=== PATIENT | female | born 1970 | race Caucasian/White ===

== ENCOUNTER 2018-12-17 13:41 | Inpatient (IN) | payer MEDICAID ==
[~2018-12-17] VITALS: Ht 152.4 cm; Wt 60.0 kg
[2018-12-17] MEDS ORDERED: ASPIRIN 325 MG TAB PO STA (14:10)
[2018-12-17] MEDS ORDERED: SOD CHLORIDE 0.9% 1,000 ML IV STA (14:10)
[2018-12-17] MEDS ORDERED: NITROGLYCERIN 2% 1 GM OINT PKT TD STA (14:10)
[2018-12-17] MEDS ORDERED: NICARDipine HCL 30 MG CAPSULE PO ONE (14:30)
[2018-12-17] MEDS ORDERED: AMLO5TAB4 PO (14:43)
[2018-12-17] MEDS ORDERED: LEVO75TA65 PO (14:43)
[2018-12-17] MEDS ORDERED: HYDR25TA6 PO (14:44)
[2018-12-17] MEDS ORDERED: SOD CHLORIDE 0.9% 100 ML ONE (16:05)
[2018-12-17] MEDS ORDERED: IOHEXOL 100 ML ONE (16:05)
--- NOTE | 2018-12-17 16:07 | ERD ---
ER Documentation Chief Complaint Chief Complaint CP ONSET 20 MIN AGO, SOB HPI This is a 48-year-old female who was resting at home and she said that she suddenly had a substernal chest pain described as a sharp/pressure then became s hort of breath. She then stated she felt like she became very afraid that the symptoms were serious and that she might . She then became panicky with hyperventilating and trembling upper extremities. Patient has a history of hypertension and takes medication. She says she is not under any excessive stress in life and has never had a panic attack before. She says that the symptoms began his pain and breathing difficulty then progressed into fear that something was going to happen promoting the rest of the symptoms ROS All systems reviewed and are negative except as per history of present illness. Medications Home Meds Reported Medications Hydrochlorothiazide* (Hydrochlorothiazide*) 25 Mg Tab, 25 MG PO DAILY, #30 TAB 12/17/18 Amlodipine Besylate* (Norvasc*) 5 Mg Tablet, 5 MG PO DAILY, TAB 12/17/18 Levothyroxine Sodium* (Levoxyl*) 75 Mcg Tablet, 75 MCG PO BEFORE BREAKFAST, #30 TAB 12/17/18 Allergies Allergies: Coded Allergies: Penicillins (Verified Allergy, Unknown, 12/17/18) PMhx/Soc History of Surgery: No Hx Cardiac Disorders: Yes (HTN) Hx Miscellaneous Medical Probl: Yes (THYROID) Hx Substance Use: No Hx Tobacco Use: No Smoking Status: Never smoker FmHx Family History: No coronary disease Physical Exam Vitals Vital Signs Date Temp Pulse Resp B/P (MAP) Pulse Ox O2 O2 Flow FiO2 Time Delivery Rate 12/17/18 98.2 118 17 115/65 100 Room Air 18:08 (82) 12/17/18 118 110/59 17:34 (76) 12/17/18 158 137/91 17:25 (106) 12/17/18 81 17 172/107 100 Room Air 16:33 (128) 12/17/18 88 16 144/104 100 Room Air 14:53 (117) 12/17/18 98.1 113 18 187/98 99 13:45 (127) Physical Exam Const: Well-developed, well-nourished Head: Atraumatic, normocephalic Eyes: Normal Conjunctiva, PERRLA, EOMI, normal sclera, no nystagmus ENT: Normal External Ears, Nose and Mouth, moist mucus membranes. Neck: Full range of motion. No meningismus, no lymphadenopathy. Resp: Clear to auscultation bilaterally, no wheezing, rhonchi, rales Cardio: Regular rate and rhythm, no murmurs, S1 S2 present Abd: Soft, non tender x 4, non distended. Normal bowel sounds, no guarding or rebound, no pulsitile abdominal masses or bruits Skin: No petechiae or rashes, no ecchymosis , no maculopapular rash Back: No midline or flank tenderness Ext: No cyanosis, or edema, FROM x 4, normal inspection, neurovascularly intact x 4 Neur: Awake and alert, STR 5/5 x 4, sensation intact x 4, no focal findings, cerebellum intact Psych: Normal Mood and Affect Result Diagram: 12/17/18 1445 12/17/18 1445 Results 24 hrs Laboratory Tests Test 12/17/18 14:45 White Blood Count 8.5 10^3/ul Red Blood Count 5.17 10^6/ul Hemoglobin 14.6 g/dl Hematocrit 43.3 % Mean Corpuscular Volume 83.8 fl Mean Corpuscular Hemoglobin 28.2 pg Mean Corpuscular Hemoglobin Concent 33.7 g/dl Red Cell Distribution Width 13.6 % Platelet Count 305 10^3/UL Mean Platelet Volume 10.5 fl Immature Granulocytes % 0.500 % Neutrophils % 61.1 % Lymphocytes % 27.0 % Monocytes % 7.4 % Eosinophils % 3.4 % Basophils % 0.6 % Nucleated Red Blood Cells % 0.0 /100WBC Immature Granulocytes # 0.040 10^3/ul Neutrophils # 5.2 10^3/ul Lymphocytes # 2.3 10^3/ul Monocytes # 0.6 10^3/ul Eosinophils # 0.3 10^3/ul Basophils # 0.1 10^3/ul Nucleated Red Blood Cells # 0.0 10^3/ul Prothrombin Time 12.6 Sec Prothrombin Time Ratio 1.0 INR International Normalized Ratio 0.93 Activated Partial Thromboplast Time 29.4 Sec D-Dimer 321.26 ng/ml D-Dimer Comment Sodium Level 144 mmol/L Potassium Level 3.9 mmol/L Chloride Level 108 mmol/L Carbon Dioxide Level 25 mmol/L Anion Gap 11 Blood Urea Nitrogen 20 mg/dl Creatinine 0.47 mg/dl Est Glomerular Filtrat Rate mL/min > 60 mL/min Glucose Level 102 mg/dl Calcium Level 9.3 mg/dl Troponin I < 0.012 ng/ml Serum HCG, Qualitative NEGATIVE Current Medications Medications Dose Sig/Kayley Start Time Status Last (Trade) Ordered Route PRN Stop Time Admin Dose Reason Admin Sodium 1,000 ml @ Q1H STAT 12/17/18 DC 12/17/18 Chloride 1,000 mls/hr IV 14:10 12/17/18 15:04 15:09 Aspirin 325 mg ONCE STAT 12/17/18 DC 12/17/18 (Aspirin) PO 14:10 12/17/18 15:04 14:12 1 inch ONCE STAT 12/17/18 DC 12/17/18 Nitroglycerin TD 14:10 12/17/18 15:05 14:12 (Nitroglyceri n 2% Oint) Nicardipine 30 mg ONCE ONCE 12/17/18 DC 12/17/18 HCl PO 14:30 12/17/18 16:39 (Cardene) 14:31 IV Flush 10 ml STK-MED 12/17/18 DC 12/17/18 (NS 10 ml) ONCE .ROUTE 16:05 12/17/18 16:05 16:06 Sodium 100 ml @ ud STK-MED 12/17/18 DC 12/17/18 Chloride ONCE .ROUTE 16:12/17/18 16:05 16:06 Iohexol 100 ml @ ud STK-MED 12/17/18 DC 12/17/18 ONCE .ROUTE 16:05 12/17/18 16:05 16:06 Diltiazem 25 mg STK-MED 12/17/18 DC HCl ONCE .ROUTE 17:24 12/17/18 (Cardizem Iv) 17:25 Diltiazem 20 mg ONCE ONCE 12/17/18 DC 12/17/18 HCl IV 17:30 12/17/18 17:35 (Cardizem Iv) 17:31 Procedures/MDM MR #: [id number] DOS: 12/17/18 1410 Ordering MD: ANKUR GRAMAJO DO Location: E/R Room/Bed: PROCEDURE: CTA Chest. CLINICAL INDICATION: Chest pain TECHNIQUE: The study was performed utilizing multidetector CT scanner. Direct spiral axial sections were obtained from the thoracic inlet to the upper abdomen with the use of 100 cc of Isovue 370 intravenous contrast material and reformatted. The images were reviewed on a PACS workstation. 3-D volume rendered images were performed. Sagittal and coronal reformatted images were obtained from the axial source images. DICOM images are available. DLP 252.88 mGy.cm mGycm CTDIvol 20.93 mGy mGy One or more of the following post reduction techniques were used: - Automated exposure control. - Adjustment of the mA and/or Kv according to patient's size. - Use of iterative reconstruction technique COMPARISON: No prior studies are available for comparison. FINDINGS: The aorta is without aneurysmal dilatation or dissection. The visualized pulmonary arteries are without evidence of filling defect to suggest pulmonary embolus. The lungs are clear. No abnormal soft tissue masses or nodular densities are visualized. There is no pleural effusion. There is no pericardial effusion. There are no pathologic enlarged mediastinal lymph nodes. The osseous structures are unremarkable. Scans through the upper abdomen are unremarkable. RPTAT: AA IMPRESSION: No CT evidence for pulmonary embolus. .Sandeep Davies MD, MD Date Time Electronically viewed and signed by .Sandeep Davies MD, MD on 12/17/2018 16:46 .S/ CC: ANKUR GRAMAJO DO [id number] EKG: Rate/Rhythm: Sinus rhythm heart rate 85 QRS, ST, QT: NORMAL OR, QRS, QT] Impression: NORMAL EKG Patient suddenly went into a tachycardia with a heart rate of 171. On the monitor looked like SVT versus A. fib. Of the time he got an EKG done her heart rate was in the low 140s and was sinus tachycardia. He did give 20 mg of Cardizem to slow it even further. Will admit for chest pain work-up and tach arrhythmia. Cardiac Admit MDM: Patient's symptoms are concerning for cardiac cause will require inpatient workup and continuous monitoring. Further w/u for ischemia, arrhythmia, PE or dissection will be deferred to the inpatient team. Departure Diagnosis: Primary Impression: Chest pain Chest pain type: unspecified Qualified Codes: R07.9 - Chest pain, unspecified Additional Impression: Tachycardia Condition: Stable ANKUR GRAMAJO DO December 17, 2018 16:07
[2018-12-17] MEDS ORDERED: DILTIAZEM 25 MG INJ ONE (17:24)
[2018-12-17] MEDS ORDERED: DILTIAZEM 25 MG INJ IV ONE (17:30)
[2018-12-17] MEDS ORDERED: ONDANSETRON 4 MG INJ IV PRN (19:00)
[2018-12-17] MEDS ORDERED: ACETAMINOPHEN 325 MG TAB PO PRN (19:00)
[2018-12-17] MEDS ORDERED: NACL 0.9% 3 ML SYG IV SCH (19:00)
--- NOTE | 2018-12-17 19:15 | HP ---
Date/Time of Note Date/Time of Note DATE: 12/17/18 TIME: 18:54 Assessment/Plan VTE Prophylaxis SCD applied (from Nsg): Yes Pharmacological prophylaxis: NA/contraindicated Pharm contraindication: low risk/ambulating Lines/Catheters IV Catheter Type (from Nrsg): Saline Lock Assessment/Plan Assessment/Plan 48 yo woman history of hypothyroid and hypertension presents with palpitations in sinus tachycardia. #Palpitations #Tachycardia - On review of ED tele, appears to be sinus tachy gradually increasing to max rate 170s. - No evidence of AVNRT or other reentrant tachycardia. - Low suspicion for ACS. EKG non-ischemic, trop neg x1. Will get 2 more trops. - Patient does not appear to be septic. No sign/symptoms of infection, even viral. - I suspect hyperthyroidism. Will check TSH/FT4. - Will start propranolol. - If thyroid function tests normal, would next consider pheochromocytoma. - She also has a diastolic murmur but this may just be related to hyperdynamic state. If still present under beta blockade tomorrow, will consider echo. #Hypothyroid - Hold home synthroid until TSH/FT4 comes back. #HTN - Continue home anti-hypertensives. DVT: SCDs GI: None Result Diagram: 12/17/18 1445 12/17/18 1445 HPI/ROS Admit Date/Time Admit Date/Time 17 Dec 2018 Hx of Present Illness Ms. Jiménez is a 48 yo woman who presents with chest discomfort and palpitaitons. She was in her usual state of health until about 13:30 this afternoon, when she suddenly developed heart palpitations. She grew very anxious and began hyperventilating. There was a component of squeezing chest pressure as well. She brought herself into the ED. She did have similar heart palpitations about a week ago, lasted about a minute and self-resolved. She believes this has happened a few times in the past also. She has never been hospitalized and does not follow a back hanger. For the past few days she has noticed she gets cold very easily. She had mild dry cough yesterday. Otherwise has felt in good health. In the ED she was hypertensive to 187/98. Initial heart rate was 113 but then increased to 170s. On review of tele, appears to be sinus with gradual increase of rate and fusing of P and T waves. She was given IV diltiazem which was effective in controlling the rate. ROS Denies recent fevers, weight loss, fatigue, headache, vision changes, sore throat, dysphagia, productive cough, nausea, vomiting, abdominal pain, diarrhea, constipation, dysuria, hematuria, leg swelling. PMH/Family/Social Past Medical History Hypertension Hyperthyroid, on synthroid for about 8 years, no recent change to dose. Medications Current Medications Ondansetron HCl (Zofran Inj) 4 mg ER BRIDGE PRN IV NAUSEA/VOMITING; Start 12/17/18 at 19:00; Stop 12/18/18 at 18:59 Acetaminophen (Tylenol Tab) 650 mg ER BRIDGE PRN PO .MILD PAIN 1-3 OR TEMP; Start 12/17/18 at 19:00; Stop 12/18/18 at 18:59 IV Flush (NS 3 ml) 3 ml PER PROTOCOL IV ; Start 12/17/18 at 19:00 Acetaminophen (Tylenol Tab) 650 mg Q6H PRN PO .PAIN 1-3 OR TEMP; Start 12/17/18 at 19:00 Coded Allergies: Penicillins (Verified Allergy, Unknown, 12/17/18) Past Surgical History R breast biopsy (negative for malignancy) Social History Alcohol Use: occasionally Smoking Status: Never smoker Drug Use: none Exam/Review of Systems Vital Signs Vitals Vital Signs Date Temp Pulse Resp B/P (MAP) Pulse Ox O2 O2 Flow FiO2 Time Delivery Rate 12/17/18 98.2 118 17 115/65 100 Room Air 18:08 (82) Exam Exam Gen: Uncomfortable appearing woman, anxious appearing Skin: Very warm, slightly diaphoretic, flushed. 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 Moist mucous membranes, clear oropharynx Neck: Visible and palpable pulsations over lower mid neck. Thyroid is not grossly enlarged. No JVD. Chest: Very hyperdynamic precordium. Card: Tachy, 1/6 diastolic murmur loudest over LLSB. Pulm: Clear to auscultation bilaterally Abd: Soft, nontender, nondistended. No hepatosplenomegaly. Ext: No cyanosis, good peripheral pulses. JOSY NEGRO MD December 17, 2018 19:04
[2018-12-17 21:00] VITALS: PULSE 91
[2018-12-17] MEDS: PROPRANOLOL 40 MG TAB PO SCH (21:00)
[2018-12-17 21:10] VITALS: BP 123/78; PULSE 87; RESP 18; Ht 152.4 cm; Wt 60.0 kg
[2018-12-17] MEDS: ACETAMINOPHEN 325 MG TAB PO PRN (21:24)
[2018-12-18] VITALS (12 sets, daily range): BP systolic 114–142; BP diastolic 63–93; PULSE 59–86; RESP 17–18
[2018-12-18] MEDS: PROPRANOLOL 40 MG TAB PO SCH ×3 (09:08→20:31)
[2018-12-18] MEDS: ACETAMINOPHEN 325 MG TAB PO PRN (14:44)
--- NOTE | 2018-12-18 15:04 | PN ---
Date/Time of Note Date/Time of Note DATE: 12/18/18 TIME: 15:00 Assessment/Plan VTE Prophylaxis Risk score (from Nsg)>0 risk: 1 SCD applied (from Nsg): Yes Pharmacological prophylaxis: NA/contraindicated Pharm contraindication: low risk/ambulating Lines/Catheters IV [facility] (from [facility] Peripheral IV Assessment/Plan Hospital Course SUBJECTIVE: No acute distress. Stable heart rate. No palpitation. OBJECTIVE: Vital signs-see below PHYSICAL EXAM: Constitutional: Adequately built,not in acute distress. HEENT: Head atraumatic and normocephalic. Eyes: Extraocular muscles intact. Anicteric sclerae. Pupils equal bilaterally, reactive to light. NECK: Supple without lymph node. CHEST: Clear and good breath sounds equally. No wheezing. No rhonchi. HEART: S1, S2. Regular rate and rhythm. ABDOMEN: Soft/non tender with no rebound tenderness. Bowel sounds were present. EXTREMITIES: No cyanosis, clubbing or edema. NEUROLOGIC: Alert and oriented x3. No focal deficit. No sensory deficit. PSYCHOSOCIAL: No signs of depression. INTEGUMENTARY: No open wounds. ASSESSMENT AND PLAN:48 yo woman history of hypothyroid and hypertension presents with palpitations in sinus tachycardia. Palpitations/Tachycardia : Resolved - No evidence of AVNRT or other reentrant tachycardia. - TSH/FT4 stable - on propranolol. - consider other possible endocrine/cardiology etiology to explain tachycardia. - Endocrinology/cardiology consult. Hypothyroid -Synthroid currently on hold secondary to palpitation. Thyroid function studies normal, defer endocrinology for dosage. HTN - Continue home anti-hypertensives. DVT: SCDs GI: None Disposition: Overall, patient responded with propranolol. Her heart rate is stable although slight borderline bradycardia noted. At this time, we recommend cardiology and endocrine work-up for etiology of palpitation which brought patient in the hospital. Continue telemetry monitoring Patient was seen in collaboration with Dr. Ocampo Result Diagram: 12/18/1847 12/18/1847 Results 24hrs Laboratory Tests Test 12/17/18 21:13 12/18/18 02:28 12/18/18 05:47 Troponin I < 0.012 < 0.012 White Blood Count 10.9 #H Red Blood Count 4.77 Hemoglobin 13.3 Hematocrit 39.7 Mean Corpuscular Volume 83.2 Mean Corpuscular Hemoglobin 27.9 L Mean Corpuscular Hemoglobin Concent 33.5 Red Cell Distribution Width 13.8 Platelet Count 299 Mean Platelet Volume 10.7 H Immature Granulocytes % 0.500 H Neutrophils % 65.8 Lymphocytes % 24.1 Monocytes % 7.4 Eosinophils % 1.8 Basophils % 0.4 Nucleated Red Blood Cells % 0.0 Immature Granulocytes # 0.050 H Neutrophils # 7.2 Lymphocytes # 2.6 Monocytes # 0.8 Eosinophils # 0.2 Basophils # 0.0 Nucleated Red Blood Cells # 0.0 Sodium Level 141 Potassium Level 3.6 Chloride Level 107 Carbon Dioxide Level 25 Anion Gap 9 Blood Urea Nitrogen 19 Creatinine 0.46 Est Glomerular Filtrat Rate mL/min > 60 Glucose Level 99 Hemoglobin A1c 5.4 Calcium Level 9.1 Phosphorus Level 3.8 Magnesium Level 2.1 Total Bilirubin 0.5 Direct Bilirubin 0.00 Indirect Bilirubin 0.5 Aspartate Amino Transf (AST/SGOT) 37 Alanine Aminotransferase (ALT/SGPT) 51 Alkaline Phosphatase 68 Total Protein 7.1 Albumin 4.2 Globulin 2.90 Albumin/Globulin Ratio 1.44 Exam/Review of Systems Exam Vitals Vital Signs Date Temp Pulse Resp B/P (MAP) Pulse Ox O2 O2 Flow FiO2 Time Delivery Rate 12/18/18 98.2 59 18 142/69 96 12:07 (93) 12/17/18 Room Air 21:10 Results Results 24hrs Laboratory Tests Test 12/17/18 21:13 12/18/18 02:28 12/18/18 05:47 Troponin I < 0.012 < 0.012 White Blood Count 10.9 #H Red Blood Count 4.77 Hemoglobin 13.3 Hematocrit 39.7 Mean Corpuscular Volume 83.2 Mean Corpuscular Hemoglobin 27.9 L Mean Corpuscular Hemoglobin Concent 33.5 Red Cell Distribution Width 13.8 Platelet Count 299 Mean Platelet Volume 10.7 H Immature Granulocytes % 0.500 H Neutrophils % 65.8 Lymphocytes % 24.1 Monocytes % 7.4 Eosinophils % 1.8 Basophils % 0.4 Nucleated Red Blood Cells % 0.0 Immature Granulocytes # 0.050 H Neutrophils # 7.2 Lymphocytes # 2.6 Monocytes # 0.8 Eosinophils # 0.2 Basophils # 0.0 Nucleated Red Blood Cells # 0.0 Sodium Level 141 Potassium Level 3.6 Chloride Level 107 Carbon Dioxide Level 25 Anion Gap 9 Blood Urea Nitrogen 19 Creatinine 0.46 Est Glomerular Filtrat Rate mL/min > 60 Glucose Level 99 Hemoglobin A1c 5.4 Calcium Level 9.1 Phosphorus Level 3.8 Magnesium Level 2.1 Total Bilirubin 0.5 Direct Bilirubin 0.00 Indirect Bilirubin 0.5 Aspartate Amino Transf (AST/SGOT) 37 Alanine Aminotransferase (ALT/SGPT) 51 Alkaline Phosphatase 68 Total Protein 7.1 Albumin 4.2 Globulin 2.90 Albumin/Globulin Ratio 1.44 Medications Medication Current Medications Ondansetron HCl (Zofran Inj) 4 mg ER BRIDGE PRN IV NAUSEA/VOMITING; Start 12/17/18 at 19:00; Stop 12/18/18 at 18:59 Acetaminophen (Tylenol Tab) 650 mg ER BRIDGE PRN PO .MILD PAIN 1-3 OR TEMP Last administered on 12/18/18at 14:44; Admin Dose 650 MG; Start 12/17/18 at 19:00; Stop 12/18/18 at 18:59 IV Flush (NS 3 ml) 3 ml PER PROTOCOL IV ; Start 12/17/18 at 19:00 Acetaminophen (Tylenol Tab) 650 mg Q6H PRN PO .PAIN 1-3 OR TEMP; Start 12/17/18 at 19:00 Propranolol HCl (Inderal) 40 mg TID PO Last administered on 12/18/18at 12:47; Admin Dose 40 MG; Start 12/17/18 at 21:00 PAMELLA CELESTE NP December 18, 2018 15:03
--- NOTE | 2018-12-18 15:12 | RADRPT ---
Echocardiogram Report Patient Name: LEO KIMBALLPatient ID: [id number] : 1970 (48y 5m)Study Date: 12/18/2018 2:22:28 PM Gender: FAccession #: [id number] Tech: Gopi Pompa [facility] Location: [facility] Ref.Physician: PAMELLA CELESTE Height(Cm): BSA: Weight(Kg): Quality: AdequateAccount #: Procedures: Echocardiographic Report: Transthoracic echocardiogram with complete 2D, M-Mode, and doppler examination. Indications: Palpitations. Measurements: 2D/M Mode Doppler Measurement Value Normal Range Measurement Value Normal Range LVIDd 2D 0.8 [ 3.8 - 5.2 ] cm AV Peak Balbir 134.0 [ 100.0 - 170.0 ] cm/sec LVIDs 2D 2.1 [ 2.2 - 3.5 ] cm AV Peak PG 7.0 [ 2.0 - 9.0 ] mmHg LVPWd 2D 0.8 [ 0.6 - 0.9 ] cm LVOT Peak Balbir 99.7 [ 70.0 - 110.0 ] cm/sec IVSd 2D 1.0 [ 0.6 - 0.9 ] cm LVOT Peak PG 4.0 [ 2.0 - 6.0 ] mmHg AoR Diam 2D 2.6 [ 2.3 - 3.1 ] cm MV E Peak Balbir 75.5 [ 60.0 - 130.0 ] cm/sec LA Dimen 2D 3.1 [ 2.7 - 3.8 ] cm MV E Peak PG 2.0 mmHg MV A Peak Balbir 105.0 [ 100.0 - 120.0 ] cm/sec MV A Peak PG 4.0 mmHg MV E/A 0.7 [ 0.8 - 1.5 ] ratio MV Decel Time 250 [ 104 - 258 ] msec E/E' 8.2 TR Peak Balbir 205.0 [ 100.0 - 280.0 ] cm/sec TR Peak PG 17.0 mmHg RVSP 27.0 [ 10.0 - 36.0 ] mmHg RA Pressure 10.0 mmHg Findings: Left Ventricle: Normal left ventricular systolic function. Normal left ventricular cavity size. Normal left ventricular wall thickness. Ejection fraction is visually estimated at 60 %. Tissue Doppler/Mitral Doppler indices are consistent with impaired relaxation (Stage I diastolic dysfunction). Right Ventricle: Normal right ventricular size. Normal right ventricular systolic function. Left Atrium: The left atrium is normal in size. Right Atrium: The right atrium is normal in size. Mitral Valve: Normal appearance and function of the mitral valve with trace physiologic regurgitation. Aortic Valve: Normal appearance of the aortic valve. No significant aortic stenosis or insufficiency. Tricuspid Valve: Normal appearance of the tricuspid valve. Estimated peak PA systolic pressure 27 mmHg. There is trace tricuspid regurgitation. Pulmonic Valve: Normal pulmonic valve appearance. Pericardium: Normal pericardium with no significant pericardial effusion. Aorta: Normal aortic root. IVC: Normal size and normal respiratory collapse consistent with normal right atrial pressure. Conclusions: Normal left ventricular systolic function. Normal left ventricular cavity size. Normal left ventricular wall thickness. Ejection fraction is visually estimated at 60 %. Tissue Doppler/Mitral Doppler indices are consistent with impaired relaxation (Stage I diastolic dysfunction). The left atrium is normal in size. Normal appearance and function of the mitral valve with trace physiologic regurgitation. Normal appearance of the aortic valve. No significant aortic stenosis or insufficiency. Normal appearance of the tricuspid valve. Estimated peak PA systolic pressure 27 mmHg. There is trace tricuspid regurgitation. Electronically Signed By: Tay Cuellar 2018-12-18 15:12:27 PDT
--- NOTE | 2018-12-18 17:56 | CONS ---
Assessment/Plan Assessment/Plan Problems: (1) Tachycardia Status: Acute Comment: It. This is not due to thyroid issues. A question was raised rather astutely by the admitting hospitalist, Dr. Loera, of the possibility of pheochromocytoma. The CT scan of the chest to rule out pulmonary embolism does not mention the adrenal gland specifically but says that the upper abdominal organs are without abnormality. Regardless this is an appropriate consideration. Patients with pheochromocytomas are always dehydrated and as such orthostatic blood pressure and pulse should help in differentiating this. I will go ahead and order the screening laboratories as well but if the patient is orthostatic then she should be placed immediately on alpha blockade therapy using a long-acting alpha-teddy such as either terazosin or doxazosin. (2) Hypertension Status: Chronic Comment: Probable essential hypertension, further delineation in progress Qualifiers: Qualified Codes: I10 - Essential (primary) hypertension (3) Grade I diastolic dysfunction Status: Chronic Comment: He does have better blood pressure control (4) Hypothyroidism Status: Chronic Comment: Stable on thyroid hormone replacement therapy Qualifiers: Qualified Codes: E03.9 - Hypothyroidism, unspecified Consultation Date/Type/Reason Admit Date/Time 17 Dec 2018 Date of Consultation: December 18, 2018 Type of Consult Endocrine Reason for Consultation Severe hypertension episodic with palpitations; hypothyroidism; rule out secondary cause of elevated blood pressure Requesting Provider: PAMELLA CELESTE NP Date/Time of Note DATE: 12/18/18 TIME: 17:49 Hx of Present Illness This is the first [facility] admission for this 48-year-old r ight-handed [employer] woman. She has a 10-year history of hypertension which had onset during her last and never resolved. She also has an 8-year history of hypothyroidism maintained on stable dose levothyroxine. Last 6 months she reports that she has had some more problems controlling her blood pressure and has had to have her medications escalated. She denies any history of ever having had spontaneous hypokalemia. She has had episodic headaches which have been more in the last 6 months and is also had some abdominal symptoms that have come and gone. He has had palpitations. On presentation to this facility she has had episodic hypertension and tachydysrhythmia that was a sinus tachycardia per the chart. Not appear to have been a reentrant tachycardia Constitutional: no complaints (Fevers chills or sweats) Eyes: no complaints ENT: no complaints Respiratory: no complaints Cardiovascular: chest pain (Intermittent chest pains), palpitations Gastrointestinal: other (Remittent epigastric discomfort) Genitourinary: no complaints Musculoskeletal: no complaints Skin: no complaints Neurologic: no complaints Past Medical History Medical History: hypertension, hypothyroid Home Meds Reported Medications Hydrochlorothiazide* (Hydrochlorothiazide*) 25 Mg Tab, 25 MG PO DAILY, #30 TAB 12/17/18 Amlodipine Besylate* (Norvasc*) 5 Mg Tablet, 5 MG PO DAILY, TAB 12/17/18 Levothyroxine Sodium* (Levoxyl*) 75 Mcg Tablet, 75 MCG PO BEFORE BREAKFAST, #30 TAB 12/17/18 Medications Current Medications Ondansetron HCl (Zofran Inj) 4 mg ER BRIDGE PRN IV NAUSEA/VOMITING; Start 12/17/18 at 19:00; Stop 12/18/18 at 18:59 Acetaminophen (Tylenol Tab) 650 mg ER BRIDGE PRN PO .MILD PAIN 1-3 OR TEMP Last administered on 12/18/18at 14:44; Admin Dose 650 MG; Start 12/17/18 at 19:00; Stop 12/18/18 at 18:59 IV Flush (NS 3 ml) 3 ml PER PROTOCOL IV ; Start 12/17/18 at 19:00 Acetaminophen (Tylenol Tab) 650 mg Q6H PRN PO .PAIN 1-3 OR TEMP; Start 12/17/18 at 19:00 Propranolol HCl (Inderal) 40 mg TID PO Last administered on 12/18/18at 12:47; Admin Dose 40 MG; Start 12/17/18 at 21:00 Allergies: Coded Allergies: Penicillins (Verified Allergy, Unknown, 12/17/18) Past Surgical History Past Surgical Hx: noncontributory Family History Significant Family History: no pertinent family hx Social History Born [employer] raised. lives with her family Alcohol Use: occasionally Smoking Status: Never smoker Drug Use: none Exam/Review of Systems Exam Vitals Vital Signs Date Temp Pulse Resp B/P (MAP) Pulse Ox O2 O2 Flow FiO2 Time Delivery Rate 12/18/18 68 16:00 12/18/18 97.3 17 137/65 97 15:33 (89) 5/5/19 Room Air 21:10 Exam To get this time where the orthostatic vital signs Constitutional: alert, oriented Eyes: nl conjunctiva, EOMI, nl lids, nl sclera Neck: supple, non-tender Respiratory: clear to auscultation, normal air movement Cardiovascular: regular rate and rhythm, nl pulses Gastrointestinal: soft, nl liver, spleen, non-tender Results Result Diagram: 12/18/18 0547 12/18/18 0547 Results 24hrs Laboratory Tests Test 12/17/18 21:13 12/18/18 02:28 12/18/18 05:47 Troponin I < 0.012 < 0.012 White Blood Count 10.9 #H Red Blood Count 4.77 Hemoglobin 13.3 Hematocrit 39.7 Mean Corpuscular Volume 83.2 Mean Corpuscular Hemoglobin 27.9 L Mean Corpuscular Hemoglobin Concent 33.5 Red Cell Distribution Width 13.8 Platelet Count 299 Mean Platelet Volume 10.7 H Immature Granulocytes % 0.500 H Neutrophils % 65.8 Lymphocytes % 24.1 Monocytes % 7.4 Eosinophils % 1.8 Basophils % 0.4 Nucleated Red Blood Cells % 0.0 Immature Granulocytes # 0.050 H Neutrophils # 7.2 Lymphocytes # 2.6 Monocytes # 0.8 Eosinophils # 0.2 Basophils # 0.0 Nucleated Red Blood Cells # 0.0 Sodium Level 141 Potassium Level 3.6 Chloride Level 107 Carbon Dioxide Level 25 Anion Gap 9 Blood Urea Nitrogen 19 Creatinine 0.46 Est Glomerular Filtrat Rate mL/min > 60 Glucose Level 99 Hemoglobin A1c 5.4 Calcium Level 9.1 Phosphorus Level 3.8 Magnesium Level 2.1 Total Bilirubin 0.5 Direct Bilirubin 0.00 Indirect Bilirubin 0.5 Aspartate Amino Transf (AST/SGOT) 37 Alanine Aminotransferase (ALT/SGPT) 51 Alkaline Phosphatase 68 Total Protein 7.1 Albumin 4.2 Globulin 2.90 Albumin/Globulin Ratio 1.44 Medications Medication Current Medications Ondansetron HCl (Zofran Inj) 4 mg ER BRIDGE PRN IV NAUSEA/VOMITING; Start 12/17/18 at 19:00; Stop 12/18/18 at 18:59 Acetaminophen (Tylenol Tab) 650 mg ER BRIDGE PRN PO .MILD PAIN 1-3 OR TEMP Last administered on 12/18/18at 14:44; Admin Dose 650 MG; Start 12/17/18 at 19:00; Stop 12/18/18 at 18:59 IV Flush (NS 3 ml) 3 ml PER PROTOCOL IV ; Start 12/17/18 at 19:00 Acetaminophen (Tylenol Tab) 650 mg Q6H PRN PO .PAIN 1-3 OR TEMP; Start 12/17/18 at 19:00 Propranolol HCl (Inderal) 40 mg TID PO Last administered on 12/18/18at 12:47; Admin Dose 40 MG; Start 12/17/18 at 21:00 LIV ANG MD December 18, 2018 17:56
--- NOTE | 2018-12-18 18:24 | CONS ---
Assessment/Plan Assessment/Plan Hospital Course (Demo Recall) Chest pain atypical rule out ACS Tachycardia: Appears to be sinus tachycardia. Question anxiety related Hypertension Hypothyroidism Recommendation: Continue with the beta-teddy Thyroid management as per internal medicine and endocrine consultants We will schedule the patient for Lexiscan stress test tomorrow Thank you for his referral. We will continue to follow along with you FELY TRAYLOR MD [facility] Consultation Date/Type/Reason Admit Date/Time 17 Dec 2018 Date of Consultation: December 18, 2018 Type of Consult Cardiology Reason for Consultation cp palpitations Requesting Provider: PAMELLA CELESTE NP Date/Time of Note DATE: 12/18/18 TIME: 18:20 Hx of Present Illness Interventional cardiology consultation note Chief complaint: chest pain/ pressure palpitations Reason for consult:tachycardia History of present illness: Thank you for this referral. This is a 48-year-old female with history of hypertension and hypothyroidism who came to emergency room with complaint. Patient came in complaining of chest pain palpitation shortness of breath. She was noted to be in sinus tachycardia intermittently per report has gone up to 170 heart rate. Although the telemetry of the heart rate of 170 was not available to me. Overnight she has remained in sinus rhythm intermittent sinus tachycardia. Her pain has resolved as well troponin have been negative Allergies: Penicillin Medications were reviewed as per medical reconciliation sheet Family history: No early coronary artery disease Social history: Non-smoker Past medical history: Hypertension Thyroidism Review of system: Patient denies all others except for above-mentioned Past Medical History Home Meds Reported Medications Hydrochlorothiazide* (Hydrochlorothiazide*) 25 Mg Tab, 25 MG PO DAILY, #30 TAB 12/17/18 Amlodipine Besylate* (Norvasc*) 5 Mg Tablet, 5 MG PO DAILY, TAB 12/17/18 Levothyroxine Sodium* (Levoxyl*) 75 Mcg Tablet, 75 MCG PO BEFORE BREAKFAST, #30 TAB 12/17/18 Medications Current Medications Ondansetron HCl (Zofran Inj) 4 mg ER BRIDGE PRN IV NAUSEA/VOMITING; Start 12/17/18 at 19:00; Stop 12/18/18 at 18:59 Acetaminophen (Tylenol Tab) 650 mg ER BRIDGE PRN PO .MILD PAIN 1-3 OR TEMP Last administered on 12/18/18at 14:44; Admin Dose 650 MG; Start 12/17/18 at 19:00; Stop 12/18/18 at 18:59 IV Flush (NS 3 ml) 3 ml PER PROTOCOL IV ; Start 12/17/18 at 19:00 Acetaminophen (Tylenol Tab) 650 mg Q6H PRN PO .PAIN 1-3 OR TEMP; Start 12/17/18 at 19:00 Propranolol HCl (Inderal) 40 mg TID PO Last administered on 12/18/18at 12:47; Admin Dose 40 MG; Start 12/17/18 at 21:00 Allergies: Coded Allergies: Penicillins (Verified Allergy, Unknown, 12/17/18) Past Surgical History Past Surgical Hx: noncontributory Social History Alcohol Use: occasionally Smoking Status: Never smoker Drug Use: none Exam/Review of Systems Vital Signs Vitals Vital Signs Date Temp Pulse Resp B/P (MAP) Pulse Ox O2 O2 Flow FiO2 Time Delivery Rate 12/18/18 68 16:00 12/18/18 97.3 17 137/65 97 15:33 (89) 12/17/18 Room Air 21:10 Exam Exam General: no acute distress HEENT: NC/AT. pupils are equal. round. NECK: NO JVD. no stridor. CV: RRR. systolic murmur; no gallop or rubs. PULM: no wheezing or rhonchi. GI: SOFT, NT, ND, no rebound or guarding Extremity: trace B/L LE edema. no clubbing. neuro: awake and alert, OX3. Psych: calm and pleasant rectal: deferred : normal EKG shows normal sinus rhythm Echocardiogram showed normal LV size and systolic function Labs Result Diagram: 12/18/18 0547 12/18/18 0547 Results 24hrs Laboratory Tests Test 12/17/18 21:13 12/18/18 02:28 12/18/18 05:47 Troponin I < 0.012 < 0.012 White Blood Count 10.9 #H Red Blood Count 4.77 Hemoglobin 13.3 Hematocrit 39.7 Mean Corpuscular Volume 83.2 Mean Corpuscular Hemoglobin 27.9 L Mean Corpuscular Hemoglobin Concent 33.5 Red Cell Distribution Width 13.8 Platelet Count 299 Mean Platelet Volume 10.7 H Immature Granulocytes % 0.500 H Neutrophils % 65.8 Lymphocytes % 24.1 Monocytes % 7.4 Eosinophils % 1.8 Basophils % 0.4 Nucleated Red Blood Cells % 0.0 Immature Granulocytes # 0.050 H Neutrophils # 7.2 Lymphocytes # 2.6 Monocytes # 0.8 Eosinophils # 0.2 Basophils # 0.0 Nucleated Red Blood Cells # 0.0 Sodium Level 141 Potassium Level 3.6 Chloride Level 107 Carbon Dioxide Level 25 Anion Gap 9 Blood Urea Nitrogen 19 Creatinine 0.46 Est Glomerular Filtrat Rate mL/min > 60 Glucose Level 99 Hemoglobin A1c 5.4 Calcium Level 9.1 Phosphorus Level 3.8 Magnesium Level 2.1 Total Bilirubin 0.5 Direct Bilirubin 0.00 Indirect Bilirubin 0.5 Aspartate Amino Transf (AST/SGOT) 37 Alanine Aminotransferase (ALT/SGPT) 51 Alkaline Phosphatase 68 Total Protein 7.1 Albumin 4.2 Globulin 2.90 Albumin/Globulin Ratio 1.44 Medications Medications Current Medications Ondansetron HCl (Zofran Inj) 4 mg ER BRIDGE PRN IV NAUSEA/VOMITING; Start 12/17/18 at 19:00; Stop 12/18/18 at 18:59 Acetaminophen (Tylenol Tab) 650 mg ER BRIDGE PRN PO .MILD PAIN 1-3 OR TEMP Last administered on 12/18/18at 14:44; Admin Dose 650 MG; Start 12/17/18 at 19:00; Stop 12/18/18 at 18:59 IV Flush (NS 3 ml) 3 ml PER PROTOCOL IV ; Start 12/17/18 at 19:00 Acetaminophen (Tylenol Tab) 650 mg Q6H PRN PO .PAIN 1-3 OR TEMP; Start 12/17/18 at 19:00 Propranolol HCl (Inderal) 40 mg TID PO Last administered on 12/18/18at 12:47; Admin Dose 40 MG; Start 12/17/18 at 21:00 FELY TRAYLOR MD December 18, 2018 18:24
[2018-12-19] VITALS (10 sets, daily range): BP systolic 110–142; BP diastolic 65–80; PULSE 54–66; RESP 17–18
[2018-12-19] MEDS: PROPRANOLOL 40 MG TAB PO SCH ×2 (09:00→12:30)
[2018-12-19] MEDS ORDERED: REGADENOSON 0.4 MG/5 ML SYG ONE (09:31)
--- NOTE | 2018-12-19 10:19 | CONS ---
Consult Date/Type/Reason Admit Date/Time December 18, 2018 at 13:12 Initial Consult Date 12/18/18 Requesting Provider: PAMELLA CELESTE NP Date/Time of Note DATE: 12/19/18 TIME: 10:18 Subjective Cardiology follow-up progress note \ S: D/ W staff and tele was was reviewed Patient has remained in sinus rhythm with no evidence of SVT No more chest pain or pressure or palpitation Objective: General: no acute distress HEENT: NC/AT. pupils are equal. round. NECK: NO JVD. no stridor. CV: RRR. systolic murmur; no gallop or rubs. PULM: no wheezing or rhonchi. GI: SOFT, NT, ND, no rebound or guarding Extremity: trace B/L LE edema. no clubbing. neuro: awake and alert, OX3. Psych: calm and pleasant rectal: deferred : normal EKG shows normal sinus rhythm Echocardiogram showed normal LV size and systolic function Objective Vitals Vital Signs Date Temp Pulse Resp B/P (MAP) Pulse Ox O2 O2 Flow FiO2 Time Delivery Rate 12/19/18 98.2 62 18 141/65 98 07:36 (90) 12/17/18 Room Air 21:10 Intake and Output 12/18/18 12/18/18 12/19/18 1515:00 23:00 07:00 IntakeIntake Total 1400 ml 200 ml BalanceBalance 1400 ml 200 ml Results/Medications Result Diagram: 12/18/18 0547 12/19/18 0710 Results 24 hrs Laboratory Tests Test 12/19/18 07:10 Sodium Level 142 Potassium Level 4.1 Chloride Level 105 Carbon Dioxide Level 28 Anion Gap 9 Blood Urea Nitrogen 18 Creatinine 0.55 Est Glomerular Filtrat Rate mL/min > 60 Glucose Level 101 Calcium Level 9.3 Magnesium Level 2.2 Home Meds Reported Medications Hydrochlorothiazide* (Hydrochlorothiazide*) 25 Mg Tab, 25 MG PO DAILY, #30 TAB 12/17/18 Amlodipine Besylate* (Norvasc*) 5 Mg Tablet, 5 MG PO DAILY, TAB 12/17/18 Levothyroxine Sodium* (Levoxyl*) 75 Mcg Tablet, 75 MCG PO BEFORE BREAKFAST, #30 TAB 12/17/18 Medications Current Medications IV Flush (NS 3 ml) 3 ml PER PROTOCOL IV ; Start 12/17/18 at 19:00 Acetaminophen (Tylenol Tab) 650 mg Q6H PRN PO .PAIN 1-3 OR TEMP; Start 12/17/18 at 19:00 Propranolol HCl (Inderal) 40 mg TID PO Last administered on 12/18/18at 20:31; Admin Dose 40 MG; Start 12/17/18 at 21:00 Assessment/Plan Hospital Course (Demo Recall) Chest pain atypical rule out ACS Tachycardia: Appears to be sinus tachycardia. Question anxiety related Hypertension Hypothyroidism Recommendation: Continue with the beta-teddy Thyroid management as per internal medicine and endocrine consultants Lexiscan stress test done today. Follow-up results. DC planning if negative Thank you for his referral. We will continue to follow along with you FELY TRAYLOR MD [facility] FELY TRAYLOR MD December 19, 2018 10:19
[2018-12-19] MEDS ORDERED: PROP40TA4 PO (10:33)
--- NOTE | 2018-12-19 10:33 | PDOCDIS ---
Discharge Instructions CONDITION [id number] Patient Condition: Dsetn2c Stable HOME CARE INSTRUCTIONS: [id number] Diet Instructions: [id number] Regular FOLLOW UP/APPOINTMENTS Follow-up Plan Follow-up with primary care physician in 1 week. PAMELLA CELESTE NP December 19, 2018 10:33
--- NOTE | 2018-12-19 10:34 | DS ---
Date/Time of Note Date/Time of Note DATE: 12/19/18 TIME: 10:34 Discharge Summary Admission/Discharge Info Admit Date/Time December 18, 2018 at 13:12 Discharge Date/Time Hospital Course SUBJECTIVE: No acute distress. Stable heart rate. No palpitation. OBJECTIVE: Vital signs-see below PHYSICAL EXAM: Constitutional: Adequately built,not in acute distress. HEENT: Head atraumatic and normocephalic. Eyes: Extraocular muscles intact. Anicteric sclerae. Pupils equal bilaterally, reactive to light. NECK: Supple without lymph node. CHEST: Clear and good breath sounds equally. No wheezing. No rhonchi. HEART: S1, S2. Regular rate and rhythm. ABDOMEN: Soft/non tender with no rebound tenderness. Bowel sounds were present. EXTREMITIES: No cyanosis, clubbing or edema. NEUROLOGIC: Alert and oriented x3. No focal deficit. No sensory deficit. PSYCHOSOCIAL: No signs of depression. INTEGUMENTARY: No open wounds. ASSESSMENT AND PLAN:48 yo woman history of hypothyroid and hypertension presents with palpitations in sinus tachycardia. Palpitations/Tachycardia : Resolved - No evidence of AVNRT or other reentrant tachycardia. - TSH/FT4 stable - on propranolol. - consider other possible endocrine/cardiology etiology to explain tachycardia. - Endocrinology/cardiology consult. Hypothyroid -Synthroid currently on hold secondary to palpitation. Thyroid function studies normal, defer endocrinology for dosage. HTN - Continue home anti-hypertensives. DVT: SCDs GI: None Disposition: Overall, patient responded with propranolol. Her heart rate is stable although slight borderline bradycardia noted. At this time, we recommend cardiology and endocrine work-up for etiology of palpitation which brought patient in the hospital. Continue telemetry monitoring Patient was seen in collaboration with Dr. Ocampo [facility] Active Scripts Propranolol Hcl* (Propranolol Hcl*) 40 Mg Tablet, 40 MG PO TID, #90 TAB Prov:PAMELLA CELESTE [employer] 12/19/18 Reported Medications Hydrochlorothiazide* (Hydrochlorothiazide*) 25 Mg Tab, 25 MG PO DAILY, #30 TAB 12/17/18 Amlodipine Besylate* (Norvasc*) 5 Mg Tablet, 5 MG PO DAILY, TAB 12/17/18 Levothyroxine Sodium* (Levoxyl*) 75 Mcg Tablet, 75 MCG PO BEFORE BREAKFAST, #30 TAB 12/17/18 Follow-up Plan Follow-up with primary care physician in 1 week. Primary Care Provider Not On Staff Doctor Pending Labs Laboratory Tests Test 12/19/18 07:10 Sodium Level 142 mmol/L (135-144) Potassium Level 4.1 mmol/L (3.5-5.1) Chloride Level 105 mmol/L (97-110) Carbon Dioxide Level 28 mmol/L (21-31) Anion Gap 9 (5-13) Blood Urea Nitrogen 18 mg/dl (7-20) Creatinine 0.55 mg/dl (0.44-1.00) Est Glomerular Filtrat Rate mL/min > 60 mL/min (>60) Glucose Level 101 mg/dl (70-220) Calcium Level 9.3 mg/dl (8.4-10.2) Magnesium Level 2.2 mg/dl (1.7-2.5) PAMELLA CELESTE NP December 19, 2018 10:34
--- NOTE | 2018-12-19 14:46 | DS ---
Date/Time of Note Date/Time of Note DATE: 12/19/18 TIME: 14:44 Discharge Summary Admission/Discharge Info Admit Date/Time December 18, 2018 at 13:12 Discharge Date/Time Discharge Diagnosis Palpitation with sinus tachycardia. Stable Hypothyroid HTN Patient Condition: Stable Consults ,cards ,endocrinology Procedures 12/19/2018. Lexiscan stress test. IMPRESSION: 1. No evidence of perfusion defects. 2. No wall motion abnormalities. 3. The left ventricle ejection fraction at stress is 67%. A call report was made to Dr Cuellar at 12: 08 p.m. on December 19, 2018. Hospital Course 48 yo woman history of hypothyroid and hypertension presents with palpitations in sinus tachycardia. There was no evidence of AVNRT or other reentrant tachycardia. Thyroid function studies stable. Patient responded to oral propranolol. Heart rate remained stable in sinus rhythm. Patient had cardiology and endocrinology follow-up. She was also ruled out for acute coronary syndrome. She also had Lexiscan stress test on 12/18/2018, negative for any reversible perfusion defects. Patient had good ejection fraction. At this time, most likely tachycardia appears to be questionable anxiety related which was resolved. At this time, no further inpatient work-up indicated and patient is medically stable for discharge with continuation of beta-blockers, home medications for underlying comorbidities. Approximately 60 m spent on coordinating the discharge on this patient. Patient was seen in collaboration with Dr. cOampo. Home Meds Active Scripts Propranolol Hcl* (Propranolol Hcl*) 40 Mg Tablet, 40 MG PO TID, #90 TAB Prov:PAMELLA CELESTE V. [employer] TRAINER 12/19/18 Reported Medications Hydrochlorothiazide* (Hydrochlorothiazide*) 25 Mg Tab, 25 MG PO DAILY, #30 TAB 12/17/18 Amlodipine Besylate* (Norvasc*) 5 Mg Tablet, 5 MG PO DAILY, TAB 12/17/18 Levothyroxine Sodium* (Levoxyl*) 75 Mcg Tablet, 75 MCG PO BEFORE BREAKFAST, #30 TAB 12/17/18 Follow-up Plan Follow-up with primary care physician in 1 week. Primary Care Provider Not On Staff Doctor Pending Labs Laboratory Tests Test 12/19/18 07:10 Sodium Level 142 mmol/L (135-144) Potassium Level 4.1 mmol/L (3.5-5.1) Chloride Level 105 mmol/L (97-110) Carbon Dioxide Level 28 mmol/L (21-31) Anion Gap 9 (5-13) Blood Urea Nitrogen 18 mg/dl (7-20) Creatinine 0.55 mg/dl (0.44-1.00) Est Glomerular Filtrat Rate mL/min > 60 mL/min (>60) Glucose Level 101 mg/dl (70-220) Calcium Level 9.3 mg/dl (8.4-10.2) Magnesium Level 2.2 mg/dl (1.7-2.5) PAMELLA CELESTE NP December 19, 2018 14:46
[2018-12-20] MEDS ORDERED: LEVOTHYROXINE 75 MCG TAB PO SCH (06:00)
== END 2018-12-19 17:35 | disposition home or self-care (01) | DRG 310 ==
LOC: E/R 13:41 → INTOOBSV 18:34 → TEL 18:34 → OBSVTOIN 12-18 13:12
PROVIDERS: ADMIT Internal Medicine; ATTEND Internal Medicine
DX: R00.0 Tachycardia, unspecified (principal); R07.89 Other chest pain; E03.9 Hypothyroidism, unspecified; I10 Essential (primary) hypertension; F41.9 Anxiety disorder, unspecified
CPT/HCPCS: 36415; 71275; 78452; 80048; 80053; 83036; 83735; 84100; 84439; 84443; 84484; 84703; 85025; 85378; 85610; 85730; 93005; 93017; 93306; 96374; 99217; A9500; A9505; G0378; J2785; J7030; Q9967

== ENCOUNTER 2019-01-17 23:12 | Emergency (ER) | payer MEDICAID ==
[~2019-01-17] VITALS: Ht 162.6 cm; Wt 60.7 kg
[~2019-01-17 23:12] MED LIST: LEVO75TA65 PO; PROP40TA4 PO
[2019-01-17 23:24] VITALS: Ht 162.6 cm; Wt 60.7 kg
[2019-01-18] MEDS ORDERED: LABETALOL HCL 20MG INJ IV ONE (03:00)
[2019-01-18 04:52] VITALS: BP 142/89; PULSE 79; RESP 18
--- NOTE | 2019-02-06 02:47 | ERD ---
ER Documentation Chief Complaint Chief Complaint high blood pressure noted today; taking HTN meds HPI Is a very pleasant 48-year-old female complains of high blood pressure was noted earlier today. Patient says she is on blood pressure medications. Denies fevers chills nausea vomiting chest pain. Denies headache. Denies focal neurologic complaints. ROS All systems reviewed and are negative except as per history of present illness. 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 Reported Medications Levothyroxine Sodium* (Levoxyl*) 75 Mcg Tablet, 75 MCG PO BEFORE BREAKFAST, #30 TAB 12/17/18 Allergies Allergies: Coded Allergies: Penicillins (Verified Allergy, Unknown, 01/18/19) PMhx/Soc Medical and Surgical Hx: pt denies Medical Hx, pt denies Surgical Hx History of Surgery: No Hx Cardiac Disorders: Yes (HTN) Hx Miscellaneous Medical Probl: Yes (THYROID) Hx Alcohol Use: No Hx Substance Use: No Hx Tobacco Use: No Smoking Status: Never smoker Physical Exam Physical Exam Const: No acute distress Head: Atraumatic Eyes: Normal Conjunctiva ENT: Normal External Ears, Nose and Mouth. Neck: Full range of motion. No meningismus. Resp: Clear to auscultation bilaterally Cardio: Regular rate and rhythm, no murmurs Abd: Soft, non tender, non distended. Normal bowel sounds Skin: No petechiae or rashes Back: No midline or flank tenderness Ext: No cyanosis, or edema Neur: Awake and alert Psych: Normal Mood and Affect Results 24 hrs Laboratory Tests Test 01/18/19 03:10 White Blood Count 11.3 10^3/ul Red Blood Count 4.88 10^6/ul Hemoglobin 13.7 g/dl Hematocrit 40.6 % Mean Corpuscular Volume 83.2 fl Mean Corpuscular Hemoglobin 28.1 pg Mean Corpuscular Hemoglobin Concent 33.7 g/dl Red Cell Distribution Width 12.9 % Platelet Count 261 10^3/UL Mean Platelet Volume 11.3 fl Immature Granulocytes % 0.400 % Neutrophils % 78.9 % Lymphocytes % 16.4 % Monocytes % 3.3 % Eosinophils % 0.6 % Basophils % 0.4 % Nucleated Red Blood Cells % 0.0 /100WBC Immature Granulocytes # 0.050 10^3/ul Neutrophils # 8.9 10^3/ul Lymphocytes # 1.9 10^3/ul Monocytes # 0.4 10^3/ul Eosinophils # 0.1 10^3/ul Basophils # 0.1 10^3/ul Nucleated Red Blood Cells # 0.0 10^3/ul Sodium Level 141 mmol/L Potassium Level 3.8 mmol/L Chloride Level 105 mmol/L Carbon Dioxide Level 24 mmol/L Anion Gap 12 Blood Urea Nitrogen 23 mg/dl Creatinine 0.60 mg/dl Est Glomerular Filtrat Rate mL/min > 60 mL/min Glucose Level 137 mg/dl Calcium Level 9.7 mg/dl Total Bilirubin 0.4 mg/dl Direct Bilirubin 0.00 mg/dl Indirect Bilirubin 0.4 mg/dl Aspartate Amino Transf (AST/SGOT) 32 IU/L Alanine Aminotransferase (ALT/SGPT) 32 IU/L Alkaline Phosphatase 98 IU/L Troponin I < 0.012 ng/ml B-Type Natriuretic Peptide 107 PG/ML Total Protein 7.9 g/dl Albumin 4.7 g/dl Globulin 3.20 g/dl Albumin/Globulin Ratio 1.46 Current Medications Medications Dose Sig/Kayley Start Time Status Last (Trade) Ordered Route PRN Stop Time Admin Dose Reason Admin Labetalol 10 mg ONCE ONCE 01/18/19 DC HCl IV 03:00 01/18/19 (Labetalol) 03:01 Procedures/MDM EKG: Rate/Rhythm: [Normal Sinus Rhythm] QRS, ST, T-waves: [No changes consistent w/ acute ischemia] Impression: [No evidence of ischemia or arrhythmia] Chest X-ray 1V Interpreted by me: Soft Tissue: No acute abnormalities Bones: No acute abnormalities Mediastinum/Cardiac Silhouette/Lungs: [No acute abnormalities] Medical decision making: Patient's thoracic symptoms have stabilized while in the department and are stable for outpatient follow up. Exam and work up not consistent w/ ischemia, arrhythmia, PE or dissection. Patient's blood pressure was elevated (>120/80) but appears stable without evide nce of hypertension emergency or urgency. The patient was counseled about the risks of hypertension and urged to pursue outpatient monitoring and therapy within a week with their primary care physician. Departure Diagnosis: Primary Impression: Hypertension Hypertension type: unspecified Qualified Codes: I10 - Essential (primary) hypertension Condition: Stable Patient Instructions: High Blood Pressure (Hypertension) SIMRAN ROPER Feb 06, 2019 02:47
== END 2019-01-18 04:54 | disposition home or self-care (01) ==
LOC: E/R 23:12
DX: I10 Essential (primary) hypertension (principal); R40.2142 Coma scale, eyes open, spontaneous, at arrival to emergency department; R40.2362 Coma scale, best motor response, obeys commands, at arrival to emergency department; R40.2252 Coma scale, best verbal response, oriented, at arrival to emergency department
CPT/HCPCS: 36415; 71045; 80053; 83880; 84484; 85025; 93005; Z7502